=== PATIENT | male | born 1970 | race Hispanic/Latino ===

== ENCOUNTER 2016-09-22 02:04 | Emergency (ER) | payer OTHER ==
[~2016-09-22] VITALS: Ht 172.7 cm; Wt 72.6 kg
[~2016-09-22 02:04] MED LIST: FLUOXETINE HYDR20 MG PO; METFORMIN HCL500 MG PO; OLANZAPINE10 MG PO; OLANZAPINE2.5 MG PO; TOPIRAMATE25 MG PO
--- NOTE | 2016-09-22 02:06 | ED AMS/SEIZURE/WEAK/DIZZY ---
History of Present Illness General Chief Complaint: ETOH/Drug Related Complaint Stated Complaint: OVERDOSE PER EMS Source: EMS Exam Limitations: clinical condition, intoxication Vital Signs & Intake/Output Vital Signs & Intake/Output Vital Signs Date Time Temp Pulse Resp B/P Pulse O2 O2 Flow FiO2 Ox Delivery Rate 09/22 1534 97.9 89 16 147/79 98 Room Air 09/22 0959 97.8 91 18 140/77 98 Room Air 09/22 0659 97.0 92 18 119/63 100 Room Air 09/22 0533 97.1 97 18 101/59 98 Room Air 09/22 0430 86 18 102/58 97 Room Air 09/22 0334 96.8 65 16 105/64 98 Room Air 09/22 0243 100 Room Air 09/22 0206 97.7 85 16 145/76 100 Room Air Reconcile Medications FLUOXETINE HCL (Fluoxetine Hydrochloride) 20 MG CAP 3 CAP PO DAILY MENTAL HEALTH (Reported) Metformin Hydrochloride (Metformin HCl) 500 MG TAB 1 TAB PO DAILY DIABETES ( Reported) Olanzapine 2.5 MG TAB 1 TAB PO DAILY BIPOLAR (Reported) Olanzapine 10 MG TAB 0.5 TAB PO AT BEDTIME BIPOLAR (Reported) Topiramate 25 MG TAB 1 TAB PO BID HEADACHE (Reported) Triage Nurses Notes Reviewed? yes Onset: Gradual Duration: hour(s): Timing: recent history Injury Environment: home Severity: moderate, severe Modifying Factors: Improves With: medication. Associated Symptoms: agonal respirations HPI: 46-year-old gentleman presents via ambulance after a period of depressed mental status. Per the medics, his significant other called 911 after she found him with decreased mental status. Him was a bottle of ibuprofen and Vyvanse. There is also an empty bottle of Bacardi rum. He had a diminished respiratory drive. He received bag mask ventilation via the medics. He received Narcan 2 mg intranasally, 2 mg IV, and 1.6 mg IV. The medics noted that this improved his respiratory drive but did not improve his mental status. Per the medics, there is no history of trauma. (ALINA PRIETO,HEIDI Hammonds) Allergies Coded Allergies: No Known Allergies (09/22/16) (ANASTACIO PRIETO,TRENA) Past History Travel History Traveled to [place] past 21 day No Medical History Any Pertinent Medical History? see below for history Psychiatric: bipolar disease, depression Endocrine: DM Surgical History Surgical History: non-contributory Psychosocial History What is your primary language R[place]an Family History Hx Contributory? No (ALINA PRIETO,HEIDI Hammonds) Review of Systems Review of Systems Constitutional: Reports: no symptoms. EENTM: Reports: no symptoms. Respiratory: Reports: no symptoms. Cardiovascular: Reports: no symptoms. GI: Reports: no symptoms. Genitourinary: Reports: no symptoms. Musculoskeletal: Reports: no symptoms. Skin: Reports: no symptoms. Neurological/Psychological: Reports: no symptoms. Hematologic/Endocrine: Reports: no symptoms. Immunologic/Allergic: Reports: no symptoms. All Other Systems: Reviewed and Negative (ALINA PRIETO,HEIDI Hammonds) Physical Exam Physical Exam General Appearance: well developed/nourished, sedated, intoxicated Head: atraumatic, normal appearance Eyes: Bilateral: normal appearance, PERRL, EOMI, other (2 mm pupils equal). Ears, Nose, Throat: normal pharynx, normal ENT inspection Neck: normal inspection, supple, full range of motion Respiratory: normal breath sounds, chest non-tender, no respiratory distress, quiet respiration Cardiovascular: regular rate/rhythm Gastrointestinal: normal bowel sounds, soft, non-tender, no organomegaly Back: normal inspection, normal range of motion Extremities: normal range of motion Neurologic/Psych: minimally responsive to vigorous stimuli. Reflexes: 1+: bicep (R), bicep (L), knee (R), knee (L). Skin: intact, normal color, warm/dry Core Measures ACS in differential dx? No CVA/TIA Diagnosis: No Severe Sepsis Present: No Septic Shock Present: No (ALINA PRIETO,HEIDI Hammonds) Progress Differential Diagnosis: alcohol intoxication, drug intoxication, electrolyte imbalance Plan of Care: Orders Procedure Date/time Status Regular Diet 09/22 L Active Nothing by Mouth 09/22 B Complete Continuous Observation Monitor 09/22 1630 Active Continuous Observation Monitor 09/22 1600 Active Continuous Observation Monitor 09/22 1200 Active Add-on Test (ER Only) 09/22 0715 Active Eugene, Insertion/Removal/Asses 09/22 0647 Complete Continuous Observation Monitor 09/22 0410 Active ED CRISIS PSYCH CONSULT 09/22 0410 Active Saline Lock 09/22 0339 Active Vital Signs 09/22 0339 Active Code Status 09/22 0339 Active ARTERIAL BLOOD GAS (GEN) 09/22 0319 Complete CULTURE,URINE 09/22 217 Active URINE DRUG SCREEN FOR ER ONLY 09/22 206 Complete URINALYSIS 09/22 206 Complete ACETOMINOPHEN 09/22 206 Complete TROPONIN LEVEL 09/22 206 Complete SALICYLATE 09/22 206 Complete LIPASE 09/22 206 Complete HEPATIC FUNCTION PANEL 09/22 206 Complete ETHANOL 09/22 206 Complete CBC WITHOUT DIFFERENTIAL 09/22 206 Complete BASIC METABOLIC PANEL 09/22 206 Complete AMYLASE 09/22 206 Complete EKG 09/22 206 Active Laboratory Tests 09/22/16 0330: pH 7.35, pCO2 40, pO2 89, HCO3 21, ABG O2 Sat (Measured) 97.0, P-50 (Temp Corrected) N, Carboxyhemoglobin 8.2 *H, O2 Concentration % RA, Phlebotomy Draw Site RIGHT BRACHIAL 09/22/164: Anion Gap 13, Estimated GFR > 60, BUN/Creatinine Ratio 15.0, Glucose 123 H, Calcium 9.5, Total Bilirubin 0.5, Direct Bilirubin 0.4, AST 16 L, ALT 29, Alkaline Phosphatase 67, Troponin I < 0.01, Total Protein 7.2, Albumin 4.2, Amylase 82, Lipase 48, CBC w Diff NO MAN DIFF REQ, RBC 5.49, MCV 84.8, MCH 28.9, RDW 14.4, MPV 7.9, Gran % 78.6 H, Lymphocytes % 15.5 L, Monocytes % 5.1, Eosinophils % 0.5, Basophils % 0.3, Absolute Granulocytes 10.6 H, Absolute Lymphocytes 2.1, Absolute Monocytes 0.7 H, Absolute Eosinophils 0.1, Absolute Basophils 0, PUBS MCHC 34.1, Salicylates < 1.0, Acetaminophen < 10.0 L, Serum Alcohol 93.0 09/22/16217: Urine Opiates Screen < 100.00, Methadone Screen < 40, Barbiturate Screen < 60, Ur Phencyclidine Scrn < 6.00, Amphetamines Screen 404, U Benzodiazepines Scrn < 85, Urine Cocaine Screen < 50, Urine Cannabis Screen < 5.00, Urinalysis MOD H, Urine Color YEL, Urine Clarity CLEAR, Urine pH 6.0, Ur Specific [place] >= 1.030 , Urine Protein TRACE H, Urine Ketones NEG, Urine Nitrite NEG, Urine Bilirubin NEG, Urine Urobilinogen 0.2, Ur Leukocyte Esterase NEG, Ur Microscopic SEDIMENT EXAMINED, Urine WBC RARE, Ur Epithelial Cells FEW, Hyaline Casts RARE H, Urine Mucus MOD H, Urine Hemoglobin NEG, Urine Glucose NEG Microbiology 09/22 646 URINE ROUT: Urine Culture - CAN Cancelled: Cancelled via OE: WILL DO ADD ON 09/22 217 URINE ROUT: Urine Culture - RECD 7:26 am Patient signed out to me by Dr. Borges. Pending crisis evaluation. SEEN BY JHOAN FROM CRISIS, WILL HOLD FOR REEVALUATION. (ANASTACIO PRIETO,TRENA) Diagnostic Imaging: Viewed by Me: Radiology Read, CT Scan. Discussed w/RAD: Radiology Read, CT Scan. Radiology Impression: HEAD CT... NO ACUTE DISEASE, RIGHT HAND... SOFT TISSUE SWELLING, NO FX CXR Impression: STREAKY ATELECTASIS Initial ED EKG: normal axis, normal intervals, normal p-waves, normal QRS complex Hand-Off Endorsed To: TRENA CHAVES MD Endorsed Time: 0700 Pending: consult Comments: PATIENT: ALESSANDRO MONTERO PRESENT AGE: 46 PATIENT ACCOUNT NO: [id number] : 72 LOCATION: [facility] ORDERING PHYSICIAN: HEIDI BORGES MD SERVICE DATE: 09/22/16 EXAM TYPE: CAT - CT HEAD WO IV CONTRAST EXAMINATION: CT HEAD WITHOUT CONTRAST CLINICAL INFORMATION: Mental status change. COMPARISON: None. TECHNIQUE: Contiguous axial images of the brain were obtained without IV contrast. DLP: 601 mGy-cm. FINDINGS: There are no pathologic extra-axial fluid collections. The lateral, third, fourth ventricles are nondilated and concordant with the appearance of the sulci. There is no evidence for acute intraparenchymal hemorrhage or infarct. There is neither mass nor mass effect. There is no shift of midline structures. The paranasal sinuses and mastoid air cells are clear. There are no osseous lesions. IMPRESSION: No evidence for acute intracranial injury. DICTATED BY: DORON ELY MD DATE/TIME DICTATED:09/22/16326 VALVE MAKER:CARLOS DATE/TIME TRANSCRIBED:09/22/16326 CONFIDENTIAL, DO NOT COPY WITHOUT APPROPRIATE AUTHORIZATION. <Electronically signed in Other Vendor System> SIGNED BY: DORON ELY MD 09/22/16 0332 (ALINA PRIETO,HEIDI Hammonds) Hand-Off Endorsed To: LORI DOTSON MD Endorsed Time: 1922 Pending: consult (CRISIS REEVALUATION) (TRENA CHAVES MD) Comments: Cleared by psychiatry for discharge (LORI DOTSON MD) Departure Departure Disposition: HOME OR SELF CARE Condition: Stable Clinical Impression Primary Impression: Mental status change Secondary Impressions: Opioid overdose Referrals: UNKNOWN (PCP/Family) Comments 09/22/16, 4:07AM... pt is awake, alert, responsive to questions. He notes that he was upset at his [place], [place] the [place]. He states he drank bacardi and took several pills he did not recall. 09/22/16, 5:02AM... discussed with poison control. pt likely ingested fentanyl which does not always show up on urine drug screen. Pt to be held for crises evaluation given the intentional overdose. (ALINA PRIETO,HEIDI Hammonds) Departure Time of Disposition: 1921 Additional Instructions: Follow up with the recommendations of the photographic process worker Departure Forms: General Discharge Information (LORI DOTSON MD)
[2016-09-22 02:38] LABS: ABSOLUTE BASOPHIL COUNT 0 /CUMM (0.0-0.2); ABSOLUTE EOSINOPHIL COUNT 0.1 /CUMM (0.0-0.7); ABSOLUTE GRANULOCYTE CT 10.6 /CUMM (1.4-6.5); ABSOLUTE LYMPH COUNT 2.1 /CUMM (1.2-3.4); ABSOLUTE MONOCYTE COUNT 0.7 /CUMM (0.10-0.60); BASOPHIL % 0.3 % (0.0-2.0); EOSINOPHIL % 0.5 % (0-5); GRANULOCYTE % 78.6 % (42.2-75.2); HEMATOCRIT 46.6 % (42-52); MEAN CORPUSCULAR HGB 28.9 PG (27.0-31.0); MEAN CORPUSCULAR HGB CONC 34.1 G/DL (33.0-37.0); MEAN CORPUSCULAR VOLUME 84.8 FL (80.0-94.0); MEAN PLATELET VOLUME 7.9 FL (7.4-10.4); PLATELET COUNT 290 /CUMM (130-400); RBC DISTRIBUTION WIDTH 14.4 % (11.5-14.5); RED BLOOD CELL CT 5.49 /CUMM (4.70-6.10); WHITE BLOOD CELL COUNT 13.5 /CUMM (4.8-10.8)
--- NOTE | 2016-09-22 03:29 | RADIOLOGY REPORT ---
EXAMINATION: CHEST 1 VIEW CLINICAL INFORMATION: Dyspnea. COMPARISON: 07/16/2015. TECHNIQUE: An AP view of the chest is provided. FINDINGS: The cardiac silhouette is not enlarged. The mediastinal and hilar contours are unremarkable. There are neither pleural effusions nor pneumothoraces. There are no consolidations. There is mild streaky opacification within the left lower lung zone. The osseous structures are unremarkable. IMPRESSION: No consolidations. Likely left lower lobe atelectasis.
--- NOTE | 2016-09-22 03:30 | RADIOLOGY REPORT ---
EXAMINATION: RIGHT HAND 3 VIEWS CLINICAL INFORMATION: Right hand swelling. COMPARISON: None. TECHNIQUE: PA, lateral, oblique views of the right hand were obtained. FINDINGS: There are no fractures or dislocations. There is mild soft tissue swelling about the dorsum of the hand as well as the third digit. IMPRESSION: Mild soft tissue swelling without fracture or dislocation.
--- NOTE | 2016-09-22 03:32 | CT SCAN REPORT ---
EXAMINATION: CT HEAD WITHOUT CONTRAST CLINICAL INFORMATION: Mental status change. COMPARISON: None. TECHNIQUE: Contiguous axial images of the brain were obtained without IV contrast. DLP: 601 mGy-cm. FINDINGS: There are no pathologic extra-axial fluid collections. The lateral, third, fourth ventricles are nondilated and concordant with the appearance of the sulci. There is no evidence for acute intraparenchymal hemorrhage or infarct. There is neither mass nor mass effect. There is no shift of midline structures. The paranasal sinuses and mastoid air cells are clear. There are no osseous lesions. IMPRESSION: No evidence for acute intracranial injury.
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
[2016-09-22 19:33] VITALS: BP 135/77
== END 2016-09-22 19:49 ==
LOC: ERH 02:04
PROVIDERS: Pediatrics
DX: T40.601A Poisoning by unspecified narcotics, accidental (unintentional), initial encounter (principal); R41.82 Altered mental status, unspecified
CPT/HCPCS: 73130-RT; 80307; 81001; 87086; 93005; 93010; 96360; G0463; G0480